=== PATIENT | male | born 1945 | race Caucasian/White ===

== ENCOUNTER → 2019-03-28 10:24 | Outpatient (CLI) | payer MEDICARE, OTHER, SELFPAY ==
--- NOTE | 2019-03-28 14:49 | PM.TREADMILL ---
Cardiac Stress Test Report Referral & Results Date Patient Seen: 03/28/19 Requesting provider: Genny Cardenas Indication: AFib Rest ECG: Atrial fibrillation with borderline controlled ventricular response Procedure Note: Today following both written and verbal informed consent the patient was exercised according to a standard Perry protocol patient went for a total of 6 minutes 36 seconds achieving a maximum heart rate of 185 maximum systolic blood pressure of 168. This is approximately 7.0 METS. Exercise was terminated at this point because of targets were met patient unable to continue. Patient was also given Cardiolite through a previously started Hep-Lock IV by the heating repair technician approximately 1 minute prior to the cessation of exercise. No ST-T segment changes identified. Patient quickly became tachycardic with his atrial fibrillation despite having taken his metoprolol day of procedure Normal blood pressure response to exercise Functional aerobic impairment 0 on the active scale Impression: Inadequate ventricular control in the setting of persistent atrial fibrillation No ischemia per usual ECG criteria, please see perfusion imaging report as well Average exercise capacity Please note: Actual ECG tracings can be found in the PACS system.
--- NOTE | 2019-03-28 20:42 | DI.NM.S_ITS ---
All DATE OF SERVICE: 03/28/2019 PROCEDURE: Exercise perfusion study. INDICATIONS: Persistent atrial fibrillation with underlying hypertension. RADIOPHARMACEUTICAL: 25.4 mCi technetium-99m Myoview IV was injected at stress and 7.9 mCi technetium-99m Myoview IV was injected at rest. It was a 1-day protocol. CARDIAC STRESS: Patient underwent exercise perfusion study under the supervision of an attending staff. Patient walked on Perry protocol for about 6 minutes 36 seconds, achieved 126% of target heart rate and normal blood pressure response. Baseline rhythm was afib low-voltage complexes with ventricular rate about 98. During stress, there was significant artifact seen. In the immediate recovery, no obvious significant reversible inducible seen. There was enhance heart rate response with afib. Patient unable to continue on treadmill. Hence, it was discontinued. Functional aerobic impairment 0%. Patient achieved 7 METs of workload. RAW DATA: There was increased subdiaphragmatic activity. GATED STUDY: Stress and resting LV ejection fraction 74% without any obvious wall motion abnormalities. No transient ischemic dilatation. TID ratio is 0.95, which is within normal limits. Resting end-diastolic volume is 73 mL. Lung/heart ratio is 0.31, which is within normal limits. MYOCARDIAL PERFUSION SCAN: Stress supine and resting supine images revealed small -sized mildly decreased perfusion of basal inferior wall and inferior apex which got completely resolved during prone images. Prone images revealed normal myocardial perfusion. CONCLUSION: I will call this study a normal myocardial perfusion study with evidence of diaphragmatic tissue attenuation artifact which got resolved during prone images. Patient has enhanced chronotropic response with underlying atrial fibrillation during exercise. Left ventricular (LV) systolic function is preserved. No transient ischemic dilatation. As far as perfusion study is concerned, this is a low-risk myocardial perfusion study. [employer] - [employer]ESS[employer]/lachelle/ab doc#: [id number]/job#: [id number] dd: 03/28/2019 18:19:00 dt: 03/28/2019 20:31:00 DICTATING /COPIES TO: Rogelio Brush MD COPIES MNE: OLGA LIDIA
== END ==
PROVIDERS: PCP Ophthalmology; Visit Provider Internal Medicine Cardiovascular Disease
DX: I48.1 Persistent atrial fibrillation (principal); I47.2 Ventricular tachycardia; I10 Essential (primary) hypertension
CPT/HCPCS: 78452; 93016; 93017; 93018; A9502